=== PATIENT | female | born 1985 | race American Indian/Alaskan Native ===

== ENCOUNTER 2018-03-02 16:28 | Emergency (ER) | payer MEDICAID ==
[2018-03-02 16:49] VITALS: BP 136/85
[2018-03-02] MEDS ORDERED: XYLOCAINE 1% MPF 5 mL INFILTRATI ONE (17:18)
[2018-03-02] MEDS ORDERED: NORCO 5/325 PO ONE (17:18)
--- NOTE | 2018-03-02 17:48 | Emergency Department Report ---
ED Laceration HPI - HPI Chief Complaint: Head Injury Stated Complaint: LACERATION ON FOREHEAD Time Seen by Provider: 03/02/18 17:02 Occurred When: Today Location: Head Severity: mild Tetanus Status: Up to Date Laceration Symptoms: Yes Pain, No Foreign Body Sensation, No Numbness, No Weakness Other History: SP GLF WITH NO LOC. LAC TO FRONT OF HEAD- MID HEAD APPROX 1 INCH JUST OVER LEFT BROW ED Review of Systems ROS: Stated complaint: LACERATION ON FOREHEAD Other details as noted in HPI Comment: All other systems reviewed and negative Constitutional: denies: see HPI Eyes: denies: eye pain ENT: denies: throat pain Respiratory: denies: orthopnea Cardiovascular: denies: dyspnea on exertion Endocrine: denies: excessive sweating Gastrointestinal: denies: abdominal pain Genitourinary: denies: urgency Musculoskeletal: denies: as per HPI Skin: as per HPI, lesions Neurological: denies: weakness Psychiatric: denies: depression Hematological/Lymphatic: denies: easy bleeding ED Past Medical Hx - Past Medical History Previous Medical History?: Yes Additional medical history: anemia - Surgical History Past Surgical History?: Yes Additional Surgical History: tubal ligation - Social History Smoking Status: Never Smoker Substance Use Type: None Laceration Physical Exam - Exam General: Vital signs noted. No distress. Alert and acting appropriately. Wound Length (cm): 4 Laceration Location: Head Full Body Front + Back: 1 - LAC Laceration Exam: Yes Normal Distal CMS, No Foreign Body, No Exposed Tendon, Vessel, or Nerve, No Tendon Injury ED Course Vital Signs 03/02/18 16:47 Temperature 98.6 F Pulse Rate 101 H Respiratory 20 Rate Blood Pressure 136/85 O2 Sat by Pulse 99 Oximetry - Laceration /Wound Repair HEAD Wound Location: head Wound Length (cm): 4 Wound's Depth, Shape: superficial Wound Explored: clean Irrigated w/ Saline (ccs): 25 Betadine Prep?: Yes Anesthesia: 1% Lidocaine Volume Anesthetic (ccs): 2 Wound Debrided: minimal Wound Repaired With: sutures Suture Size/Type: 4:0 Number of Sutures: 6 Layer Closure?: No Sterile Dressing Applied?: Yes Progress: TOLERATED WELL WELL APPROX BUT QUIT A BIT OF SWELLING PT INSTRUCTED ON REINFORCING IN AM WITH STERI STRIPS ED Medical Decision Making - Medical Decision Making SIMPLE LAC - Differential Diagnosis GLF LAC TO HEAD; NO LOC Critical care attestation.: If time is entered above; I have spent that time in minutes in the direct care of this critically ill patient, excluding procedure time. ED Disposition Clinical Impression: Laceration Disposition: DC-01 TO HOME OR SELFCARE Is pt being admited?: No Does the pt Need Aspirin: No Condition: Stable Instructions: Suture Care (ED), Laceration (ED) Additional Instructions: ICE SLEEP SITTING UP TODAY TYLENOL FOR PAIN REINFORCE STERI STRIPS IN AM SWELLING DECREASES RETURN WE DISCUSSED FOR SUTURE REMOVAL Referrals: PRIMARY CARE, [Primary Care Provider] - 3-5 Days Time of Disposition: 17:47
== END 2018-03-02 18:07 | disposition home or self-care (01) ==
LOC: ED 16:28
DX: S01.81XA Laceration without foreign body of other part of head, initial encounter (principal); F17.200 Nicotine dependence, unspecified, uncomplicated; Z86.2 Personal history of diseases of the blood and blood-forming organs and certain disorders involving the immune mechanism; Z98.51 Tubal ligation status; Z88.6 Allergy status to analgesic agent; W26.8XXA Contact with other sharp object(s), not elsewhere classified, initial encounter; Y93.89 Activity, other specified; Y92.89 Other specified places as the place of occurrence of the external cause; Y99.8 Other external cause status
CPT/HCPCS: 99282

== ENCOUNTER 2018-03-08 03:56 | Emergency (ER) | payer SELFPAY ==
--- NOTE | 2018-03-08 04:33 | Emergency Department Report ---
Suture/Staple Removal - [facility] Chief Complaint: Laceration/Recheck/Suture Stated Complaint: REMOVAL OF STITCHES Time Seen by Provider: 03/08/18 04:29 Wound Location: pt presents for suture removal of suture placer 5 days ago to [facility] ED Review of Systems ROS: Stated complaint: REMOVAL OF STITCHES Other details as noted in HPI Constitutional: denies: chills, fever Eyes: denies: eye pain, eye discharge, vision change ENT: denies: ear pain, throat pain Respiratory: denies: cough, shortness of breath, wheezing Cardiovascular: denies: chest pain, palpitations Endocrine: no symptoms reported Gastrointestinal: denies: abdominal pain, nausea, diarrhea Genitourinary: denies: urgency, dysuria, discharge Musculoskeletal: denies: back pain, joint swelling, arthralgia Skin: other (sutures intact x 6 no symptoms of infection ) Neurological: denies: headache, weakness, paresthesias Psychiatric: denies: anxiety, depression ED Past Medical Hx - Past Medical History Previous Medical History?: Yes Additional medical history: anemia - Surgical History Past Surgical History?: Yes Additional Surgical History: tubal ligation - Social History Smoking Status: Never Smoker Substance Use Type: None Suture Removal Exam - Exam General: Vital signs noted. No distress. Alert and acting appropriately. Wound: Yes Tenderness, No Pathologic Erythema, No Drainage, No Pus, No Wound Dehiscence Other Systems: All other systems reviewed and are unremarkable. ED Course Vital Signs 03/08/18 04:02 Temperature 98.6 F Pulse Rate 89 Respiratory 16 Rate Blood Pressure 121/96 O2 Sat by Pulse 99 Oximetry ED Recheck MDM - Medical Decision Making sutures removed intact six sutures removed no drainage no erythema no symptoms of infection edges well approximated steristrip placed x 1, pt tolerated procedure with minimal distress. pt dc 'd to home in stable condition at this time. Critical care attestation.: If time is entered above; I have spent that time in minutes in the direct care of this critically ill patient, excluding procedure time. ED Disposition Clinical Impression: Visit for suture removal Disposition: DC-01 TO HOME OR SELFCARE Is pt being admited?: No Does the pt Need Aspirin: No Condition: Stable Instructions: Suture Removal (ED) Referrals: PRIMARY CARE, [Referring] - 3-5 Days Forms: Work/School Release Form(ED) Time of Disposition: 04:33
== END 2018-03-08 05:02 | disposition home or self-care (01) ==
LOC: ED 03:56